=== PATIENT | female | born 1965 | race Caucasian/White ===

== ENCOUNTER 2020-08-18 08:25 | Day surgery (SDC) | payer OTHER ==
[2020-08-18 08:29] LABS: Urine Appearance CLEAR (Clear); Urine Bilirubin NEGATIVE (Negative); Urine Blood NEGATIVE (Negative); Urine Color YELLOW (Yellow); Urine Glucose NEGATIVE (Negative); Urine Protein NEGATIVE (Negative); Urine Urobilinogen 0.2 mg/dL (0.2-1.0)
[2020-08-18 08:33] LABS: Urine Microscopic Reflex NO UMIC
--- NOTE | 2020-08-18 08:40 | RAD REPORT ---
EXAM DESCRIPTION: RAD - Chest Pa And Lat (2 Views) - 08/18/2020 8:33 am CLINICAL HISTORY: preop COMPARISON: No comparisons FINDINGS: No evidence of edema or pneumonia. The heart size is within normal limits.No acute osseous abnormality. No significant pleural effusions or pneumothorax. IMPRESSION: No acute cardiopulmonary disease.
[2020-08-18] MEDS ORDERED: CEFAZOLIN SODIUM 1 GM/VIAL ONE (08:57)
[2020-08-18] MEDS ORDERED: NS 0.9% VIAL 40 ML ONE (08:57)
[2020-08-18] MEDS ORDERED: GENTAMICIN SULF 80 MG/2ML INJ ONE (08:57)
[2020-08-18] MEDS ORDERED: BACITRACIN 50000 UNIT VIAL ONE (08:58)
[2020-08-18] MEDS ORDERED: LIDOCAINE 1% W/EPI 1:100,000 MDV 50 ML VIAL ONE (08:58)
[2020-08-18] MEDS ORDERED: Ringers Lactate 1,000 ML IV ONE ×3 (09:15→09:19)
[2020-08-18] MEDS ORDERED: CEFAZOLIN/SWI 1gm 1 GM/10 ML SYR ONE (09:16)
[2020-08-18] MEDS ORDERED: MIDAZOLAM HCL 2 MG/2 ML INJ ONE (09:24)
[2020-08-18] MEDS ORDERED: propofoL 200 MG/20 ML VIAL IV ONE (09:24)
[2020-08-18] MEDS ORDERED: dexAMETHasone 10 MG/ML VIAL ONE (09:24)
[2020-08-18] MEDS ORDERED: ROCURONIUM 50 MG/5 ML VIAL IV ONE (09:25)
[2020-08-18] MEDS ORDERED: FENTANYL CITR 250 MCG/5 ML ONE (09:25)
[2020-08-18] MEDS ORDERED: LIDOCAINE 2% MPF 5 ML VIAL ONE (09:25)
[2020-08-18] MEDS ORDERED: ONDANSETRON 4 MG/2 ML VIAL ONE ×2 (09:25→14:57)
[2020-08-18] MEDS ORDERED: Ringers Lactate 0 ML IV ONE (09:29)
[2020-08-18] MEDS ORDERED: EPHEDRINE SULF 50 MG/ML VIAL ONE (10:10)
[2020-08-18] MEDS ORDERED: GLYCOPYRROLATE 0.2 MG/ML SYR ONE (11:08)
[2020-08-18] MEDS ORDERED: Phenylephrine HCl 10 MG/ML 1 ML VIAL ONE (11:43)
[2020-08-18] MEDS ORDERED: KETOROLAC 30 MG/ML INJ ONE (13:49)
[2020-08-18] MEDS ORDERED: Mastisol Adhesive Liq ONE (13:57)
[2020-08-18] MEDS ORDERED: LIDOCAINE 1% MPF 2 ML AMPULE ONE (13:57)
[2020-08-18] MEDS ORDERED: MORPHINE 10 MG/ML VIAL ONE (14:02)
[2020-08-18 15:01] VITALS: TEMP 97
[2020-08-18 15:55] VITALS: BP 99/70; O2SAT 97
--- NOTE | 2020-08-19 08:03 | EKG ---
Test Date: 2020-08-18 Test Time: 07:01:35 [employer] Body Maker: [place] MEASUREMENT RESULTS: Intervals: Rate: 65 WI: 170 QRSD: 76 QT: 394 QTc: 409 [place]: P: 67 WI: 170 QRS: 82 T: 37 INTERPRETIVE STATEMENTS: Normal sinus rhythm Normal ECG No previous ECG available for comparison Electronically Signed On 08-19-20 08:03:02 CDT by Nilo Landeros
[2020-08-21 19:18] LABS: HBsAG Nonreactive (Nonreactive)
--- NOTE | 2020-08-23 08:59 | OP ---
Surgeon: Joesph Flores MD Preoperative Diagnosis: Breast descent. Postoperative Diagnosis: Breast descent. Procedure Performed: Lift. Anesthesia: General. Operative Note: After satisfactory induction of general anesthesia, the chest was prepped with DuraP rep. Dry sterile drapes were applied in usual manner. A 5 cm template was used to outline the right and left areolas. An eccentric parallel incision was outlined. The skin was de-epithelialized with dermabrader on both sides and then the spiral straps were elevated at the cephalad and of both. The right breast was approached first. Electrocautery was used for hemostasis around the per iareolar incision. Flap was dissected . Flap was about 1 cm thick, cephalad and medial an d 0.5 cm thick inferolateral and transitioned between. Flap was dissected down to the fascia. The d ermal straps were then woven. The cephalad strap was woven vertically from top to bottom and bottom to top and looped through pec major muscle and passed retropectorally. The medial strap was passed h orizontally from medial to lateral, lateral to medial and looped through pec major muscle and looped again through the straps and passed retropectorally. The cephalad strap was then looped through the horizontal strap tied to itself with 2-0 PDS suture. This was done and then the wounds we re then . Left side was done in identical manner. Then, returned to the right side. A 10 SHAUNNA was placed, sewn in place with 2-0 silk and 3-0 PDS. The wound was closed with a purs estring of 0 [place] and then interrupted 4-0 PDS followed by 4-0 PDS running subcuticular. This wa s done in the identical manner the pedicle manner. Dressings of tincture of benzoin, Steri-Strips, f ollowed by Esmarch, fluffs and Roc wrap. Dressings of tincture of benzoin, Steri-Strips, followed by Esmarch, fluffs and Roc wrap. The patient had a hypotensive episode of bradycardia during the procedure and pressor was used to maintain pressure. Other than that the p atient tolerated procedure well. GH/MODL Voice ID: [id number] Report ID: [id number]
[2020-08-23 17:12] LABS: HIV AG/AB 4TH GEN Non-reactive (Non-reactive)
== END 2020-08-18 16:12 | disposition home or self-care (01) ==
LOC: OR 08:25
PROVIDERS: ATTEND Specialist
PROC: 0HSV0ZZ Reposition Bilateral Breast, Open Approach (ICD-10-PCS; principal; 2020-08-18 09:00)
DX: N64.81 Ptosis of breast (principal)
CPT/HCPCS: 93005; 36415; 81003; 87389; 80074; 71046; 19316; J2704; J2370; J1580; J2250; J3010; J1100; J0690 ×2; J7120 ×3; J2405 ×2